=== PATIENT | male | born 1960 | race African-American/Black ===

== ENCOUNTER 2017-08-30 11:15 | Outpatient (CLI) | payer OTHER | END 2017-08-30 11:20 | disposition home or self-care (01) | LOC: RAD 501 11:15 | DX: Z76.89 Persons encountering health services in other specified circumstances (principal) ==

== ENCOUNTER 2017-08-30 12:31 | Outpatient (CLI) | payer OTHER | END 2017-08-30 12:40 | disposition home or self-care (01) | LOC: LAB 12:31 | DX: Z22.322 Carrier or suspected carrier of Methicillin resistant Staphylococcus aureus (principal) ==

== ENCOUNTER 2017-09-11 08:26 | Outpatient (CLI) | payer OTHER | END 2017-09-11 08:37 | disposition home or self-care (01) | LOC: LAB 08:26 | DX: D64.89 Other specified anemias (principal); E88.89 Other specified metabolic disorders; D68.8 Other specified coagulation defects; N39.0 Urinary tract infection, site not specified ==

== ENCOUNTER 2017-09-11 08:28 | Outpatient (CLI) | payer OTHER | END 2017-09-11 08:39 | disposition home or self-care (01) | LOC: EKG 08:28 | DX: I49.8 Other specified cardiac arrhythmias (principal) ==

== ENCOUNTER 2017-09-15 07:17 | Outpatient (CLI) | payer OTHER ==
[2017-09-15] MEDS ORDERED: NORVASC5 MG PO (13:40)
[2017-09-15] MEDS ORDERED: BYSTOLIC5 MG PO (13:40)
[2017-09-15] MEDS ORDERED: INVOKAMET 150-1 EAC1 PO (13:41)
[2017-09-15] MEDS ORDERED: TRADJENTA5 MG PO (13:41)
[2017-09-15] MEDS ORDERED: LISINOPRIL5 MG PO (13:41)
[2017-09-15] MEDS ORDERED: FORTAMET1000 MG PO (13:42)
[2017-09-15] MEDS ORDERED: GLYBURIDE5 MG PO (13:42)
== END 2017-09-15 07:34 | disposition home or self-care (01) ==
LOC: NUCLEAR 07:17
DX: R07.89 Other chest pain (principal)
CPT/HCPCS: 78452; 93017; A9500

== ENCOUNTER 2017-10-03 05:35 | Day surgery (SDC) | payer OTHER ==
[~2017-10-03 05:35] MED LIST: BYSTOLIC5 MG PO; FORTAMET1000 MG PO; GLYBURIDE5 MG PO; INVOKAMET 150-1 EAC1 PO; LISINOPRIL5 MG PO; NORVASC5 MG PO; TRADJENTA5 MG PO
== END 2017-10-03 15:20 | disposition home or self-care (01) ==
LOC: CIR.AMB 05:35
DX: M75.112 Incomplete rotator cuff tear or rupture of left shoulder, not specified as traumatic (principal); M24.112 Other articular cartilage disorders, left shoulder

== ENCOUNTER 2018-05-01 07:35 | Outpatient (CLI) | payer OTHER | END 2018-05-01 07:43 | disposition home or self-care (01) | LOC: LAB 07:35 | DX: E55.9 Vitamin D deficiency, unspecified (principal); M85.9 Disorder of bone density and structure, unspecified; E56.1 Deficiency of vitamin K; M81.8 Other osteoporosis without current pathological fracture; E83.42 Hypomagnesemia; E88.89 Other specified metabolic disorders ==

== ENCOUNTER → 2018-05-01 | Outpatient (CLI) | payer OTHER | END | disposition home or self-care (01) | LOC: RAD 08:12 | DX: M75.122 Complete rotator cuff tear or rupture of left shoulder, not specified as traumatic (principal) ==

== ENCOUNTER 2018-05-16 07:35 | Outpatient (CLI) | payer OTHER | END 2018-05-16 07:40 | disposition home or self-care (01) | LOC: LAB 07:35 | DX: N28.9 Disorder of kidney and ureter, unspecified (principal) ==